=== PATIENT | female | born 1965 | race Caucasian/White ===

== ENCOUNTER → 2020-07-22 | Day surgery (SDC) | payer OTHER ==
[~2020-07-22] VITALS: Ht 152.4 cm; Wt 99.8 kg
[~2020-07-22] MED LIST: CELEXA20 MG PO; DETROL2 MG PO; DITROPAN5 MG PO; ELAVIL25 MG PO; K-DUR20 MEQ PO; LASIX20 MG PO; MELOXICAM15 MG PO; PERCOCET 5-3251 EACH PO; PRILOSEC20 MG PO; TERBINAFINE HC250 MG PO; VIT D3 PO; VOLTAREN **OUT75 MG PO; WOMEN'S 50 PLU1 EACH PO
[2020-07-22 07:47] LABS: HCT 44.8 % (37.0-47.0); HGB 15.3 g/dl (12.5-16.0); MCH 31.5 pg (25.0-31.0); MCHC 34.2 g/dL (32.0-36.0); MCV 92.2 fL (78.0-100.0); MPV 9.6 fL (6.0-9.5); RBC 4.86 M/uL (4.20-5.40); RDW 13.3 % (11.5-14.0); WBC 6.5 K/uL (4.0-10.5)
[2020-07-22 08:18] LABS: BILIRUBIN - TOTAL 0.4 mg/dL (0.2-1.0); CREATININE 0.7 mg/dL (0.51-0.95); GLOBULIN (CALCULATION) 3.5 g/dL; POTASSIUM 4.3 mmol/L (3.5-5.1); TOTAL PROTEIN 7.5 g/dL (6.4-8.2)
== END | disposition home or self-care (01) ==
LOC: FAS 07:09
PROVIDERS: Surgery
DX: K21.00 Gastro-esophageal reflux disease with esophagitis, without bleeding (principal); K29.70 Gastritis, unspecified, without bleeding; K58.9 Irritable bowel syndrome, unspecified; G47.30 Sleep apnea, unspecified; M19.90 Unspecified osteoarthritis, unspecified site; F17.210 Nicotine dependence, cigarettes, uncomplicated; Z98.890 Other specified postprocedural states; Z90.710 Acquired absence of both cervix and uterus; Z20.822 Contact with and (suspected) exposure to COVID-19
CPT/HCPCS: 36415; 80053; J1610; J2250; J2704; J7120